=== PATIENT | male | born 1960 | race Hispanic/Latino ===

== ENCOUNTER 2022-07-13 09:06 | Emergency (ER) | payer OTHER ==
[2022-07-13 09:41] LABS: Hematocrit 30.2 % (39.6-49.0); Lymphocytes % 7.3 % (15.3-44.8); MCV 96.1 fL (80-100); MPV 8.8 fL (7.6-11.3); RBC Red Blood Cell Count 3.14 M/uL (4.33-5.43)
[2022-07-13 09:50] LABS: Protime INR 1.15
--- NOTE | 2022-07-13 10:01 | RAD REPORT ---
EXAM DESCRIPTION: CT - Head Brain Wo Cont - 07/13/2022 9:42 am CLINICAL HISTORY: Fall with head injury COMPARISON: None TECHNIQUE: Computed axial tomography of the head was obtained. IV contrast was not requested. All CT scans are performed using dose optimization technique as appropriate and may include automated exposure control or mA/KV adjustment according to patient size. FINDINGS: Right frontal scalp swelling. An intracranial bleed is not seen . The ventricles are normal in caliber. No extra-axial fluid collection is noted. No significant hyperdensity within the brain is seen Fluid within the sinuses/ mastoids is not seen. IMPRESSION: No acute intracranial abnormality is seen. If patient's symptoms persist MRI of the bra in would be recommended.
[2022-07-13] MEDS ORDERED: NA CHLORIDE 0.9% 0 ML ONE (10:08)
[2022-07-13] MEDS ORDERED: PANTOPRAZOLE 40 MG INJ ONE (10:08)
--- NOTE | 2022-07-13 10:15 | RAD REPORT ---
EXAM DESCRIPTION: Ashly Single View07/13/2022 9:49 am CLINICAL HISTORY: Syncope COMPARISON: 2012 FINDINGS: Lungs are mildly to moderately hyperaerated. Probable calcified granuloma right lung base. The lungs appear clear of acute infiltrate. The heart is normal size IMPRESSION: No acute abnormalities displayed
[2022-07-13 10:24] LABS: Albumin 3.2 g/dL (3.4-5.0); Bilirubin Direct 0.1 mg/dL (0-0.2); Bilirubin Total 0.4 mg/dL (0.2-1.0); Potassium 4.3 mmol/L (3.5-5.1); Protein, Total 6.1 g/dL (6.4-8.2); Troponin High Sensitivity 16.7 pg/mL (<58.9)
[2022-07-13 12:23] LABS: SARS-CoV-2 Antigen Rapid Res Negative (Negative)
--- NOTE | 2022-07-13 12:26 | EDPHYS ---
Physician Documentation [facility] Name: Kiran Cassidy Age: 62 yrs Sex: Male : 1960 Arrival Date: 07/13/2022 Time: 09:14 Bed 2 Private MD: ED Physician Del Handy HPI: 07/13 09:38 This 62 yrs old Male presents to ER via EMS with complaints of GI Bleeding. rt 09:38 The patient presents to the emergency department vomiting blood, with rectal bleeding. rt Onset: The symptoms/episode began/occurred this morning. Abdominal pain: none is appreciated. Modifying factors: The symptoms are alleviated by nothing, the symptoms are aggravated by nothing. Associated signs and symptoms: Pertinent positives: syncope. Severity of symptoms: At their worst the symptoms were moderate. Presents to the ED with coffee-ground emesis, reported black stools at about 530 this morning. The patient had a syncopal event today just prior to arrival. States that he felt lightheaded at that time. He states that he did hit his head. Reported mild abdominal discomfort at the time of the vomiting, none currently. Denies other acute complaints at this time, symptoms are moderate severity, no other aggravating or alleviating factors. Historical: - Allergies: 09:27 No Known Allergies; iw - PMHx: 09:27 None; iw - PSHx: 09:27 None; iw - Social history:: Smoking status: Patient reports the use of cigarette tobacco products, smokes one-half pack cigarettes per day. - Family history:: not pertinent. ROS: 09:38 Constitutional: Negative for fever, chills, and weight loss, Eyes: Negative for injury, rt pain, redness, and discharge, ENT: Negative for injury, pain, and discharge, Neck: Negative for injury, pain, and swelling, Cardiovascular: Negative for chest pain, palpitations, and edema, Respiratory: Negative for shortness of breath, cough, wheezing, and pleuritic chest pain, Back: Negative for injury and pain, MS/Extremity: Negative for injury and deformity, Skin: Negative for injury, rash, and discoloration, Psych: Negative for depression, anxiety, suicide ideation, homicidal ideation, and hallucinations. 09:38 Abdomen/GI: Positive for hematemesis, black/tarry stool. 09:38 Neuro: Positive for syncope, Negative for altered mental status. Exam: 09:38 Constitutional: This is a well developed, well nourished patient who is awake, alert, rt and in no acute distress. Head/Face: Normocephalic, atraumatic. ENT: Nares patent. No nasal discharge, no septal abnormalities noted. Tympanic membranes are normal and external auditory canals are clear. Oropharynx with no redness, swelling, or masses, exudates, or evidence of obstruction, uvula midline. Mucous membranes moist. Neck: Trachea midline, no thyromegaly or masses palpated, and no cervical lymphadenopathy. Supple, full range of motion without nuchal rigidity, or vertebral point tenderness. No Meningismus. Chest/axilla: Normal chest wall appearance and motion. Nontender with no deformity. No lesions are appreciated. Cardiovascular: Regular rate and rhythm with a normal S1 and S2. No gallops, murmurs, or rubs. Normal PMI, no JVD. No pulse deficits. Respiratory: Lungs have equal breath sounds bilaterally, clear to auscultation and percussion. No rales, rhonchi or wheezes noted. No increased work of breathing, no retractions or nasal flaring. Abdomen/GI: Soft, non-tender, with normal bowel sounds. No distension or tympany. No guarding or rebound. No evidence of tenderness throughout. Skin: Warm, dry with normal turgor. Normal color with no rashes, no lesions, and no evidence of cellulitis. MS/ Extremity: Pulses equal, no cyanosis. Neurovascular intact. Full, normal range of motion. Neuro: Awake and alert, GCS 15, oriented to person, place, time, and situation. Cranial nerves II-XII grossly intact. Motor strength 5/5 in all extremities. Sensory grossly intact. Cerebellar exam normal. Normal gait. Psych: Awake, alert, with orientation to person, place and time. Behavior, mood, and affect are within normal limits. 09:38 Eyes: Pale conjunctiva, extraocular muscles intact. 10:45 ECG was reviewed by the Attending Physician. rt Vital Signs: 09:25 BP 103 / 70; Pulse 73; Resp 16; Temp 97.2; Pulse Ox 100% on R/A; Weight 61.23 kg; iw Height 5 ft. 5 in. (165.10 cm); Pain 0/10; 10:16 BP 113 / 83; Pulse 74; Resp 16; Pulse Ox 100% on R/A; iw 10:46 BP 121 / 83; Pulse 73; Resp 16; Pulse Ox 100% on R/A; iw 11:35 BP 111 / 52; Pulse 73; Resp 16; Pulse Ox 98% on R/A; iw 09:25 Body Mass Index 22.46 (61.23 kg, 165.10 cm) iw MDM: 09:27 Patient medically screened. rt 12:41 Differential diagnosis: hemorrhagic shock, varices, PUD. Data reviewed: vital signs, rt nurses notes, EMS record. ED course: Presents to the ED with reported melena, hematemesis. Patient was hypotensive, improved with IV fluids, Protonix was given. Patient will be transferred for further care.. 07/13 09:25 Order name: Basic Metabolic Panel; Complete Time: 11:13 rt 07/13 09:25 Order name: CBC with Diff; Complete Time: 10:23 rt 07/13 09:25 Order name: CPK; Complete Time: 11:13 rt 07/13 09:25 Order name: Hepatic Function; Complete Time: 11:13 rt 07/13 09:25 Order name: Magnesium; Complete Time: 11:13 rt 07/13 09:25 Order name: Protime (+inr); Complete Time: 10:23 rt 07/13 09:25 Order name: Ptt, Activated; Complete Time: 10:23 rt 07/13 09:25 Order name: Troponin High Sensitivity; Complete Time: 11:13 rt 07/13 09:25 Order name: CT Head Brain wo Cont; Complete Time: 10:23 rt 07/13 09:25 Order name: Chest Single View XRAY; Complete Time: 10:23 rt 07/13 09:25 Order name: Type And Screen rt 07/13 11:37 Order name: SARS RAPID eb 07/13 13:03 Order name: ABO/RH no charge EDMS 07/13 09:25 Order name: EKG; Complete Time: 09:26 rt 07/13 09:25 Order name: Cardiac monitoring; Complete Time: 10:12 rt 07/13 09:25 Order name: EKG - Nurse/Tech; Complete Time: 10:12 rt 07/13 09:25 Order name: IV Saline Lock; Complete Time: 10:12 rt 07/13 09:25 Order name: Labs collected and sent; Complete Time: 10:12 rt 07/13 09:25 Order name: NPO; Complete Time: 10:12 rt 07/13 09:25 Order name: O2 Per Protocol; Complete Time: 10:12 rt 07/13 09:25 Order name: O2 Sat Monitoring; Complete Time: 10:12 rt EC:45 Rate is 64 beats/min. Rhythm is regular, Normal Sinus Rhythm with No ectopy. QRS Jal rt is Normal. CO interval is normal. QRS interval is normal. QT interval is normal. No Q waves. T waves are Normal. No ST changes noted. Clinical impression: Normal ECG. Interpreted by me. Administered Medications: 09:30 Drug: NS 0.9% 1000 ml Route: IV; Rate: 1 bolus; Site: right antecubital; iw 13:22 Follow up: IV Status: Completed infusion iw 10:12 Drug: ProTONIX (pantoprazole) 80 mg Route: IVP; Site: right antecubital; iw 13:22 Follow up: Response: No adverse reaction iw Disposition Summary: 07/13/22 12:25 Transfer Ordered Transfer Location: [facility] rt Reason: Higher level of care rt Condition: Fair rt Problem: new rt Symptoms: have improved rt Accepting Physician: Dr. Rosio David(07/13/22 13:22) iw Diagnosis - Hematemesis rt - Melena rt - Sycnope rt Forms: - Medication Reconciliation Form rt - SBAR form rt Critical care time excluding procedures: 12:41 Critical care time: Bedside Care: 30 minutes, Consultation: 10 minutes. Total time: 40 rt minutes Signatures: Dispatcher [employer] Betsy Ibrahim RN RN iw Botello, Elizabeth eb [place], Ryan, MD MD rt Corrections: (The following items were deleted from the chart) 12:48 12:25 Dr. rt soto 13:22 12:48 Dr. Rosio David iw
--- NOTE | 2022-07-13 12:26 | ER ---
Nurse's Notes [facility] Name: Kiran Cassidy Age: 62 yrs Sex: Male : 1960 Arrival Date: 07/13/2022 Time: 09:14 Bed 2 Private MD: Diagnosis: Hematemesis;Melena;Sycnope Presentation: 07/13 09:25 Chief complaint: Patient states: black stool this morning started at 0530 , also iw reports coffee ground emesis, he passed out in front of his son, denies medical hx, drinks 2-3 beers per day. Coronavirus screen: At this time, the client does not indicate any symptoms associated with coronavirus-19. Ebola Screen: Patient negative for fever greater than or equal to 101.5 degrees Fahrenheit, and additional compatible Ebola Virus Disease symptoms Patient denies exposure to infectious person. Patient denies travel to an Ebola-affected area in the 21 days before illness onset. No symptoms or risks identified at this time. Initial Sepsis Screen: Does the patient meet any 2 criteria? No. Patient's initial sepsis screen is negative. Does the patient have a suspected source of infection? No. Patient's initial sepsis screen is negative. Risk Assessment: Do you want to hurt yourself or someone else? Patient reports no desire to harm self or others. Onset of symptoms was July 13, 2022. 09:25 Method Of Arrival: EMS: [facility] iw 09:25 Acuity: TAYLOR 2 iw Triage Assessment: 13:22 General: Appears in no apparent distress. Behavior is calm, cooperative. iw Historical: - Allergies: :27 No Known Allergies; iw - PMHx: :27 None; iw - PSHx: :27 None; iw - Social history:: Smoking status: Patient reports the use of cigarette tobacco products, smokes one-half pack cigarettes per day. - Family history:: not pertinent. Screenin:[address] [facility] ED Fall Risk Assessment (Adult) History of falling in the last 3 months, iw including since admission No falls in past 3 months (0 pts) Confusion or Disorientation No (0 pts) Intoxicated or Sedated No (0 pts) Impaired Gait No (0 pts) Mobility Assist Device Used No (0 pt) Altered Elimination No (0 pt). Abuse screen: Denies threats or abuse. Denies injuries from another. Nutritional screening: No deficits noted. Tuberculosis screening: No symptoms or risk factors identified. Fall Risk IV access (20 points). 13:22 Humpty Dumpty Scale Fall Assessment Tool (age< 18yrs) Age 13 years and above (1 pt). iw Assessment: 10:14 Reassessment: Patient appears in no apparent distress at this time. Patient and/or iw family updated on plan of care and expected duration. Pain level reassessed. Patient is alert, oriented x 3, equal unlabored respirations, skin warm/dry/pink. waiting on lab results, pt has had no episodes of vomiting or dark stool , VSS. 12:00 Reassessment: Patient appears in no apparent distress at this time. Patient and/or iw family updated on plan of care and expected duration. Pain level reassessed. Patient is alert, oriented x 3, equal unlabored respirations, skin warm/dry/pink. Patient denies pain at this time. Vital Signs: 09:25 BP 103 / 70; Pulse 73; Resp 16; Temp 97.2; Pulse Ox 100% on R/A; Weight 61.23 kg; iw Height 5 ft. 5 in. (165.10 cm); Pain 0/10; 10:16 BP 113 / 83; Pulse 74; Resp 16; Pulse Ox 100% on R/A; iw 10:46 BP 121 / 83; Pulse 73; Resp 16; Pulse Ox 100% on R/A; iw 11:35 BP 111 / 52; Pulse 73; Resp 16; Pulse Ox 98% on R/A; iw 09:25 Body Mass Index 22.46 (61.23 kg, 165.10 cm) iw ED Course: 09:14 Patient arrived in ED. eb 09:15 Del Handy MD is Attending Physician. rt 09:15 Inserted saline lock: 20 gauge in left antecubital area, using aseptic technique. iw 09:24 Betsy Britton, ANKIT is Primary Nurse. iw 09:27 Triage completed. iw 09:27 Arm band placed on. iw 09:43 CT Head Brain wo Cont In Process Unspecified. EDMS 09:50 Chest Single View XRAY In Process Unspecified. EDMS 10:15 Maintain EMS IV. Dressing intact. Good blood return noted. Site clean \T\ dry. Gauge \T\ iw site: 18 RAC. 10:25 EKG done, by ED staff, reviewed by Del Handy MD. mm9 11:39 intiated a transfer with Radha from the [facility]. eb 12:07 connected the hospitalist conversion man for [facility] with Dr. Handy for patient eb transfer consultation. 12:10 administrative approval given by JAMES Moreau/ patient has been accepted to [facility] eb 24 T Rm 2410/ Dr. Rosio David has accepted the patient in transfer/ report to be called to [phone]. 13:21 No provider procedures requiring assistance completed. Patient transferred, IV remains iw in place. 13:22 Patient has correct armband on for positive identification. iw Administered Medications: 09:30 Drug: NS 0.9% 1000 ml Route: IV; Rate: 1 bolus; Site: right antecubital; iw 13:22 Follow up: IV Status: Completed infusion iw 10:12 Drug: ProTONIX (pantoprazole) 80 mg Route: IVP; Site: right antecubital; iw 13:22 Follow up: Response: No adverse reaction iw Medication: 13:22 VIS not applicable for this client. iw Outcome: 12:25 ER care complete, transfer ordered by . rt 13:21 Transferred by [facility]. to [facility], Transfer form iw completed. X-rays sent w/ patient. 13:21 Condition: stable 13:21 Discharge instructions given to patient, family, Instructed on the need for transfer. 13:22 Patient left the ED. iw Signatures: Dispatcher [employer] Betsy Ibrahim RN RN Chante Forbes Maria mm9 Del Handy MD MD rt
[2022-07-13 13:34] VITALS: TEMP 97.2
[2022-07-13 13:37] VITALS: BP 111/52; O2SAT 98
--- NOTE | 2022-07-15 15:56 | EKG ---
Test Date: 2022-07-13 Test Time: 10:18:47 Office Aide: CARMELITA MEASUREMENT RESULTS: Intervals: Rate: 64 DC: 134 QRSD: 86 QT: 406 QTc: 418 Dumas: P: 67 DC: 134 QRS: 87 T: 85 INTERPRETIVE STATEMENTS: Normal sinus rhythm Normal ECG Compared to ECG 01/17/2013 05:20:14 Sinus bradycardia no longer present Electronically Signed On 07-15-22 15:54:55 DIRECTOR [employer] by Jonathan Ferrer
== END 2022-07-13 13:22 | disposition short-term general hospital (02) ==
LOC: ER 09:06
DX: K92.0 Hematemesis (principal); K92.1 Melena; R55 Syncope and collapse; F17.210 Nicotine dependence, cigarettes, uncomplicated; Z20.822 Contact with and (suspected) exposure to COVID-19
CPT/HCPCS: 96361; 93005; 85025; 80048; 36415; 86900; 83735; 86850; 82550; 85610; 86901; 80076; 85730; 84484; 70450; 71045; 96374; 99285; 87811; C9113; J7030